=== PATIENT | male | born 1985 | race American Indian/Alaskan Native ===

== ENCOUNTER 2019-07-31 22:56 | Emergency (ER) | payer SELFPAY ==
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
[2019-07-31] MEDS ORDERED: Acetaminophen 325 MG Tab PO ONE (23:38)
[2019-07-31 23:57] LABS: ANION GAP 13.7; CHLORIDE,CL 106 mmol/L (101-111); SODIUM,NA 140 mmol/L (135-145)
== END 2019-08-01 00:23 | disposition left against medical advice (07) ==
LOC: DL.ED 22:56
DX: S01.01XA Laceration without foreign body of scalp, initial encounter (principal); S05.11XA Contusion of eyeball and orbital tissues, right eye, initial encounter; F17.210 Nicotine dependence, cigarettes, uncomplicated; Y04.8XXA Assault by other bodily force, initial encounter
CPT/HCPCS: 36415; 70450; 70486; 80053; 80307; 85025; 99284; A9270; 99283

== ENCOUNTER 2020-08-10 22:32 | Emergency (ER) | payer MEDICAID ==
--- NOTE | 2020-08-10 22:50 | EDM.PDOC ---
ED HPI GENERAL MEDICAL PROBLEM - General Chief Complaint: Upper Extremity Injury/Pain Stated Complaint: LEFT FORARMY POSSIBLY BROKEN PER PT Time Seen by Provider: 08/10/20 22:46 Source of Information: Reports: Patient, RN, RN Notes Reviewed History Limitations: Reports: No Limitations - History of Present Illness INITIAL COMMENTS - FREE TEXT/NARRATIVE: Patient presents to the ED via personal vehicle with complaints of left forearm pain. The patient reports he injured the extremity about 30 prior to arrival while working on cabinetry. His spring clamp broke and struck his arm posterior forearm forcefully; he is concerned about possible fracture. The patient denies history of injury to the extremity. 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 He denies loss of sensory function to the extremity. He has not taken any analgesic medications for this problem. Left Middle Anterior Arm Pain Score (Numeric/FACES): 7 - Related Data Allergies Allergy/AdvReac Type Severity Reaction Status Date / Time No Known Allergies Allergy Verified 07/31/19 23:09 Home Meds: Home Meds . [No Known Home Meds] 07/31/19 [History] Past Medical History - Past Health History Medical/Surgical History: Denies Medical/Surgical History Review of Systems - Review of Systems Review Of Systems: Comprehensive ROS is negative, except as noted in HPI. ED EXAM, GENERAL - Physical Exam Exam: See Below Exam Limited By: No Limitations General Appearance: Alert, No Apparent Distress Peripheral Pulses: 2+: Radial (L), Radial (R) Extremities: Normal Capillary Refill, Arm Pain (To left mid-posterior forearm ), Limited Range of Motion (Decreased boiler operator helper strength d/t pain), Other (Mild edema to left mid-posterior forearm). No: Joint Swelling, Increased Warmth, Mottled, Pallor, Redness Neurological: Alert, Oriented, CN II-XII Intact, Normal Cognition, Normal Gait, Normal Reflexes, No Motor/Sensory Deficits Psychiatric: Normal Affect, Normal Mood Skin Exam: Warm, Dry, Intact, Normal Color, No Rash, Other (Mild edema to left mid-posterior forearm; No bruising noted at this time). No: Ecchymosis, Erythema, Increased Warmth, Jaundice, Mottled, Pallor, Petechiae, Rash Course - Vital Signs Last Recorded V/S: Last Vital Signs Temp 97.7 F 08/10/20 22:44 Pulse 113 H 08/10/20 22:44 Resp 17 08/10/20 22:44 BP 147/74 H 08/10/20 22:44 Pulse Ox 100 08/10/20 22:44 - Radiology Interpretation Free Text/Narrative:: [facility] [place] [facility] Final Radiology Report Call: [phone] assistance Online chat: [email or web address] Name: CONSTANTIN LEIJA Age: 34Years M Date: 08/10/2020 SSN: -- : [id number] Study: CR FOREARM 2V LT Requesting Physician: Ruth Saha Images: 2 Addl Studies: Provided Clinical History: Pain to posterior aspect of forearm Contrast: Contrast Medium: Contrast Amount: Contrast Method: CONFIDENTIALITY STATEMENT This report is intended only for use by the referring physician, and only in accordance with law. If you received this in error, call [phone]. Page 1 of 1 PROCEDURE INFORMATION: Exam: XR Left Forearm Exam date and time: 08/10/2020 10:55 PM Age: 34 years old Clinical indication: Injury or trauma; Other: Woodworking clamp fell onto arm; Blunt trauma (contusions or hematomas); Arm, lower; Left; Additional info: Pain to posterior aspect of forearm TECHNIQUE: Imaging protocol: XR Left forearm. Views: 2 views. COMPARISON: No relevant prior studies available. FINDINGS: Bones/joints: Normal. Soft tissues: Normal. IMPRESSION: No acute findings. Thank you for allowing us to participate in the care of your patient. Dictated and Authenticated by: Jung Rosenberg MD 08/10/2020 11:13 PM Central Time ([place] & [place]) - Re-Assessments/Exams Free Text/Narrative Re-Assessment/Exam: 08/10/20 Xray of forearm unremarkable for acute processes; no fracture appreciated. Findings of examination and imaging discussed with patient. Discussed supportive cares. Patient verbalized understanding and agreement with the plan of care. Departure - Departure Time of Disposition: 23:15 Disposition: Home, Self-Care 01 Condition: Good Clinical Impression: Injury of left forearm Qualifiers: Encounter type: initial encounter Qualified Code(s): S59.912A - Unspecified injury of left forearm, initial encounter - Discharge Information *PRESCRIPTION DRUG MONITORING PROGRAM REVIEWED*: Not Applicable *COPY OF PRESCRIPTION DRUG MONITORING REPORT IN PATIENT DOUGLAS: Not Applicable Instructions: Pain Medicine Instructions, [id number] Forms: ED Department Discharge Additional Instructions: 1.) You may take ibuprofen (Advil/Motrin) 400mg every six hours, as pain and swelling persists. You may also take acetaminophen (Tylenol) 650mg every six hours, as pain persists. You may stagger these medications so you are taking a dose every three hours. 2.) You may apply ice to the affected area, as swelling and pain persists. 20 minutes at a time every hour. 3.) Continue to use the arm, using pain as your guide, as stiffness will result in more pain. Sepsis Event Note (ED) - Focused Exam Vital Signs: Vital Signs Temp Pulse Resp BP Pulse Ox 08/10/20 22:44 97.7 F 113 H 17 147/74 H 100
--- NOTE | 2020-08-10 23:13 | CR ---
PROCEDURE INFORMATION: Exam: XR Left Forearm Exam date and time: 08/10/2020 10:55 PM Age: 34 years old Clinical indication: Injury or trauma; Other: Woodworking clamp fell onto arm; Blunt trauma (contusions or hematomas); Arm, lower; Left; Additional info: Pain to posterior aspect of forearm TECHNIQUE: Imaging protocol: XR Left forearm. Views: 2 views. COMPARISON: No relevant prior studies available. FINDINGS: Bones/joints: Normal. Soft tissues: Normal. IMPRESSION: No acute findings.
== END 2020-08-10 23:24 | disposition home or self-care (01) ==
LOC: DL.ED 22:32
DX: S59.912A Unspecified injury of left forearm, initial encounter (principal); W22.8XXA Striking against or struck by other objects, initial encounter
CPT/HCPCS: 73090-LT; 99282; 99283-25

== ENCOUNTER 2020-08-13 14:57 | Emergency (ER) | payer MEDICAID ==
[2020-08-13] MEDS ORDERED: Proparacaine 0.5% Ophth Soln 15 ML Bottle EYERT ONE (15:15)
[2020-08-13] MEDS ORDERED: Tetracaine HCl/PF 0.5% 4 ML Bottle ONE (15:19)
[2020-08-13] MEDS ORDERED: Fluorescein 1 MG Ophth Strip EYERT ONE (15:27)
[2020-08-13] MEDS ORDERED: Gentamicin 0.3% Ophth Soln 5 ML Bottle ONE (15:52)
--- NOTE | 2020-08-13 16:18 | EDM.PDOC ---
Scribed by Airam Gonzalez 08/13/20 8022 for Vadim You MD ED HPI GENERAL MEDICAL PROBLEM - General Chief Complaint: ENT Problem Stated Complaint: SOMETHING IN RIGHT EYE Time Seen by Provider: 08/13/20 15:40 Source of Information: Reports: Patient, RN, RN Notes Reviewed History Limitations: Reports: No Limitations - History of Present Illness INITIAL COMMENTS - FREE TEXT/NARRATIVE: Patient presents to ED by POV stating complaints of having potentially sawdust in his right eye. Eye is watering and the lid is swollen and red. Onset: Today Duration: Getting Worse Location: Reports: Other (right eye) Quality: Reports: Ache Severity: Moderate Improves with: Reports: None Worsens with: Reports: None Associated Symptoms: Reports: No Other Symptoms Right Eye Pain Score (Numeric/FACES): 6 - Related Data Allergies Allergy/AdvReac Type Severity Reaction Status Date / Time No Known Allergies Allergy Verified 07/31/19 23:09 Home Meds: Home Meds . [No Known Home Meds] 07/31/19 [History] Past Medical History - Past Health History Medical/Surgical History: Denies Medical/Surgical History - Past Surgical History Musculoskeletal Surgical History: Reports: Other (See Below) Other Musculoskeletal Surgeries/Procedures:: left elbow surgery Social & Family History - Tobacco Use Tobacco Use Status *Q: Current Every Day Tobacco User Years of Tobacco use: 10 Packs/Tins Daily: 0.5 - Caffeine Use Caffeine Use: Reports: Soda - Recreational Drug Use Recreational Drug Use: No - Living Situation & Occupation Occupation: Employed ED ROS ENT - Review of Systems Review Of Systems: Comprehensive ROS is negative, except as noted in HPI. ED EXAM, ENT - Physical Exam Exam: See Below Exam Limited By: No Limitations General Appearance: Alert, WD/WN, No Apparent Distress Eye Exam: Right Eye: Conjunctival Injection, Corneal Abrasion, Left Eye: Normal Inspection, Bilateral Eye: EOMI, PERRL Ears: Normal External Exam Nose: Normal Inspection Head: Atraumatic, Normocephalic Respiratory/Chest: No Respiratory Distress Neurological: Alert, Oriented, CN II-XII Intact, No Motor/Sensory Deficits Psychiatric: Normal Mood Skin: Warm, Dry, Intact, Normal Color, No Rash Course - Vital Signs Last Recorded V/S: Last Vital Signs Temp 96.4 F L 08/13/20 15:05 Pulse 95 03/12/21 15:05 Resp 16 08/13/20 15:05 BP 138/92 H 08/13/20 15:05 Pulse Ox 95 08/13/20 15:05 - Orders/Labs/Meds Orders: Active Orders 24 hr Category Date Time Status Gentamicin [Garamycin 0.3% Ophth Soln] Med 08/13/20 21:00 Active 1 ml EYERT TID Medication Orders Gentamicin Sulfate (Gentamicin 0.3% Ophth Soln 5 Ml Bottle) 1 ml EYERT TID LARS Meds: Medications Generic Name Dose Route Start Last Admin Trade Name Freq PRN Reason Stop Dose Admin Gentamicin Sulfate 1 ml 08/13/20 21:00 Gentamicin 0.3% Ophth Soln 5 Ml Bottle EYERT TID LARS Discontinued Medications Generic Name Dose Route Start Last Admin Trade Name Freq PRN Reason Stop Dose Admin Fluorescein Sodium 1 mg 08/13/20 15:27 08/13/20 16:12 Fluorescein 1 Mg Ophth Strip EYERT 08/13/20 15:28 1 mg ONETIME ONE Administration Gentamicin Sulfate Confirm 08/13/20 15:52 08/13/20 16:12 Gentamicin 0.3% Ophth Soln 5 Ml Bottle Administered 08/13/20 15:53 1 ml Dose Administration 5 ml .ROUTE .STK-MED ONE Proparacaine HCl 1 ml 08/13/20 15:15 08/13/20 16:12 Proparacaine 0.5% Ophth Soln 15 Ml Bottle EYERT 08/13/20 15:16 Not Given ONETIME ONE Tetracaine HCl Confirm 08/13/20 15:19 08/13/20 16:13 Tetracaine Hcl/Pf 0.5% 4 Ml Bottle Administered 08/13/20 15:20 1 ml Dose Administration 4 ml .ROUTE .STK-MED ONE Departure - Departure Time of Disposition: 16:16 Disposition: Home, Self-Care 01 Condition: Good Clinical Impression: Right corneal abrasion Qualifiers: Encounter type: initial encounter Qualified Code(s): S05.01XA - Injury of conjunctiva and corneal abrasion without foreign body, right eye, initial encounter - Discharge Information *PRESCRIPTION DRUG MONITORING PROGRAM REVIEWED*: Not Applicable *COPY OF PRESCRIPTION DRUG MONITORING REPORT IN PATIENT DOUGLAS: Not Applicable Instructions: Eye Foreign Body, [id number], Corneal Abrasion, [id number] Forms: ED Department Discharge Additional Instructions: Gentamicin Ophthalmic Solution 0.3% x5 days. Proparacaine Eye Drops x24 hours only. Follow up in eye clinic if not completely better by Sunday morning (08/16/20). Sepsis Event Note (ED) - Evaluation Sepsis Screening Result: No Definite Risk - Focused Exam Vital Signs: Vital Signs Temp Pulse Resp BP Pulse Ox 08/13/20 15:05 96.4 F L 95 16 138/92 H 95 - My Orders Last 24 Hours: My Active Orders 08/13/20 21:00 Gentamicin [Garamycin 0.3% Ophth Soln] 1 ml EYERT TID - Assessment/Plan Last 24 Hours: My Active Orders 08/13/20 21:00 Gentamicin [Garamycin 0.3% Ophth Soln] 1 ml EYERT TID I have read and agree with the documentation that has been completed regarding this visit. By signing this record, I attest that the documentation was completed in my physical presence and is an accurate record of the encounter.
[2020-08-13] MEDS ORDERED: Gentamicin 0.3% Ophth Soln 5 ML Bottle EYERT SCH (21:00)
== END 2020-08-13 16:22 | disposition home or self-care (01) ==
LOC: DL.ED 14:57
DX: S05.01XA Injury of conjunctiva and corneal abrasion without foreign body, right eye, initial encounter (principal); Z72.0 Tobacco use; X58.XXXA Exposure to other specified factors, initial encounter
CPT/HCPCS: 99282; 99283; A9270-GY

== ENCOUNTER 2020-11-25 12:07 | Emergency (ER) | payer MEDICAID ==
[2020-11-25] MEDS ORDERED: Lidocaine 1% 30 ML SDV INJECT ONE (13:04)
[2020-11-25] MEDS ORDERED: Bupivacaine 0.5% 30 ML SDV INJECT ONE (13:04)
--- NOTE | 2020-11-25 13:14 | EDM.PDOC ---
ED HPI GENERAL MEDICAL PROBLEM - General Chief Complaint: Upper Extremity Injury/Pain Stated Complaint: LEFT INDEX FINGER OCTAIVO, SWOLLEN, HARD THREE DAYS Time Seen by Provider: 11/25/20 12:55 Source of Information: Reports: Patient History Limitations: Reports: No Limitations - History of Present Illness INITIAL COMMENTS - FREE TEXT/NARRATIVE: Patient comes emergency department today with concerns of an infection on his left second finger. This patient who chews on his fingernails on a daily basis was also IV methamphetamine user for many years noticed yesterday on the tip of his second finger and he had quite a bit of swelling and redness. It is gotten quite a bit worse and the pain is to the point where he cannot take it anymore. He has had no fever or chills. No recent trauma or injury to this finger. He is unsure of what his last tetanus shot was. Left Finger-Index Pain Score (Numeric/FACES): 6 - Related Data Allergies Allergy/AdvReac Type Severity Reaction Status Date / Time No Known Allergies Allergy Verified 07/31/19 23:09 Home Meds: Home Meds . [No Known Home Meds] 07/31/19 [History] Past Medical History - Past Health History Medical/Surgical History: Denies Medical/Surgical History - Past Surgical History Musculoskeletal Surgical History: Reports: Other (See Below) Other Musculoskeletal Surgeries/Procedures:: left elbow surgery Social & Family History - Tobacco Use Tobacco Use Status *Q: Current Every Day Tobacco User Years of Tobacco use: 23 Packs/Tins Daily: 1 - Caffeine Use Caffeine Use: Reports: Coffee, Energy Drinks, Soda, Tea - Recreational Drug Use Recreational Drug Use: Yes Recreational Drug Type: Reports: Methamphetamine Other Recreational Drug Type: last used five days ago, IV in right arm - Living Situation & Occupation Occupation: Employed Review of Systems - Review of Systems Review Of Systems: Comprehensive ROS is negative, except as noted in HPI. ED EXAM, GENERAL - Physical Exam Exam: See Below Exam Limited By: No Limitations General Appearance: Alert, WD/WN, No Apparent Distress Respiratory/Chest: No Respiratory Distress Cardiovascular: Normal Peripheral Pulses, Regular Rate, Rhythm Peripheral Pulses: 2+: Radial (L), Radial (R) Extremities: Other (Rest of the hand is noninfectious appearing. Actually appears that there is quite a bit of pus under the nail itself.). No: Normal Inspection (Exam left hand. On the very distal end of the second finger the left hand there is a pretty impressive paronychia with quite a bit of swelling at the base of the nailbed as well as the surrounding area. There is good CMS throughout the entire to the finger. He is able to flex and extend appropria) Neurological: Alert, Oriented, Normal Cognition, No Motor/Sensory Deficits Skin Exam: Warm, Dry, Intact, Normal Color ED TRAUMA EXTREMITY PROCEDURES - I&D Site: left index finger Skin Prep: Providone-Iodine (Betadine) Local Anesthesia: Lidocaine: 1% Plain Local Anesthesia - Bupivicaine (Marcaine): 0.5% Plain Local Anesthetic Volume: 4cc, Other (A digital block at the base of the index finger medially and laterally.) Area Incised With: 11 Blade (A small puncture wound was made at the base of the cuticle) Drainage: Purulent, Moderate Amount Probed to Break Up Loculations: No Complications: No Progress/Comments: The finger then was soaked in sterile water as well as chlorhexidine. Course - Vital Signs Last Recorded V/S: Last Vital Signs Temp 97.2 F 11/25/20 12:27 Pulse 111 H 11/25/20 12:27 Resp 12 11/25/20 12:27 BP 137/81 11/25/20 12:27 Pulse Ox 98 11/25/20 12:27 - Orders/Labs/Meds Meds: Medications Discontinued Medications Generic Name Dose Route Start Last Admin Trade Name Michaelq PRN Reason Stop Dose Admin Bupivacaine HCl 30 ml 11/25/20 13:04 11/25/20 13:14 Bupivacaine 0.5% 30 Ml Sdv INJECT 11/25/20 13:05 10 ml ONETIME ONE Administration Diphtheria/Tetanus/Acell Pertussis 0.5 ml 11/25/20 13:35 11/25/20 13:41 Diphtheria,Pertussis(Acell),Tetanus Vaccine 0.5 Ml Syringe IM 11/25/20 13:36 0.5 ml .ONCE ONE Administration Lidocaine HCl 30 ml 11/25/20 13:04 11/25/20 13:14 Lidocaine 1% 30 Ml Sdv INJECT 11/25/20 13:05 10 ml ONETIME ONE Administration Trimethoprim/Sulfamethoxazole 1 tab 11/25/20 13:33 11/25/20 13:41 Sulfamethoxazole/Trimethoprim 800-160 Mg Tab PO 11/25/20 13:34 1 tab ONETIME ONE Administration - Re-Assessments/Exams Free Text/Narrative Re-Assessment/Exam: 11/25/20 15:15 His tetanus immunization was up dated today. Bactrim 1 tablet p.o. He is uninterested in assistance with his chronic methamphetamine IV usage. Discharge directions as below are explained to the patient is comfortable with this plan and his questions were answered. Departure - Departure Time of Disposition: 13:36 Disposition: Home, Self-Care 01 Clinical Impression: Paronychia of finger of left hand - Discharge Information Instructions: Paronychia, [id number] Forms: ED Department Discharge Additional Instructions: Your tetanus was updated today. You are good for 10 years. Tylenol and or Ibuprofen for pain. Bactrim DS, 1 tablet twice daily for the next 7 days. Finish no matter what the entire course. #14. Soap your finger 4 times a day in warm/hot water Awa dish soap and Epsom salts the next 4 days or until healed. Allow the finger incision to drain. Recheck in the ED if new or worsening symptoms. Follow up in the clinic if concerns. Sepsis Event Note (ED) - Evaluation Sepsis Screening Result: No Definite Risk - Focused Exam Vital Signs: Vital Signs Temp Pulse Resp BP Pulse Ox 11/25/20 12:27 97.2 F 111 H 12 137/81 98
[2020-11-25] MEDS ORDERED: Sulfamethoxazole/Trimethoprim 800-160 MG Tab PO ONE (13:33)
[2020-11-25] MEDS ORDERED: Diphtheria,Pertussis(Acell),Tetanus Vaccine 0.5 ML Syringe IM ONE (13:35)
== END 2020-11-25 13:45 | disposition home or self-care (01) ==
LOC: DL.ED 12:07
DX: L03.012 Cellulitis of left finger (principal); L02.512 Cutaneous abscess of left hand; Z23 Encounter for immunization
CPT/HCPCS: 10060; 90471; 90715; 99283; A9270; J3490

== ENCOUNTER 2021-02-03 19:53 | Emergency (ER) | payer MEDICAID ==
[2021-02-03] MEDS ORDERED: Clindamycin HCl 150 MG Cap PO ONE ×2 (19:54→21:52)
[2021-02-03] MEDS ORDERED: Acetaminophen/oxyCODONE 325-5 MG Tab PO ONE ×2 (19:54→21:52)
[2021-02-03] MEDS ORDERED: Ketorolac 30 MG/ML SDV IM ONE (20:25)
[2021-02-03] MEDS ORDERED: Ketorolac 30 MG/ML SDV IVPUSH ONE (20:32)
[2021-02-03] MEDS ORDERED: Iopamidol 612 MG/ML 100 ML Bottle IVPUSH ONE (20:33)
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
[2021-02-03] MEDS ORDERED: Acetaminophen/oxyCODONE 325-5 MG Tab ONE (22:08)
[2021-02-03] MEDS ORDERED: Clindamycin HCl 150 MG Cap ONE (22:08)
== END 2021-02-03 22:14 | disposition home or self-care (01) ==
LOC: DL.ED 19:53
DX: S02.652A Fracture of angle of left mandible, initial encounter for closed fracture (principal); K04.7 Periapical abscess without sinus; K02.9 Dental caries, unspecified; Z72.0 Tobacco use; Y04.2XXA Assault by strike against or bumped into by another person, initial encounter
CPT/HCPCS: 70487; 96374; 99284; A9270; J1885; Q9967

== ENCOUNTER 2022-08-28 16:45 | Emergency (ER) | payer MEDICAID ==
[2022-08-28] MEDS ORDERED: Lidocaine 1% 5 ML VIAL INJECT ONE (16:50)
[2022-08-28] MEDS ORDERED: Ketorolac 30 MG/ML SDV IM ONE (17:09)
== END 2022-08-28 18:04 | disposition home or self-care (01) ==
LOC: DL.ED 16:45
DX: S01.112A Laceration without foreign body of left eyelid and periocular area, initial encounter (principal); W22.8XXA Striking against or struck by other objects, initial encounter
CPT/HCPCS: 12011; 70450; 96372; 99283; J1885; 99282; J3490

== ENCOUNTER 2022-11-17 19:29 | Emergency (ER) | payer MEDICAID ==
[2022-11-17] MEDS ORDERED: HYDROmorphone 1 MG/ML Syringe IVPUSH ONE ×2 (19:56→21:34)
[2022-11-17] MEDS ORDERED: Ondansetron 4 MG in Sodium Chloride 0.9% 50 ML IV ONE (19:57)
[2022-11-17] MEDS ORDERED: ceFAZolin 2 GM Vial IVPUSH ONE (20:29)
[2022-11-17] MEDS ORDERED: Ondansetron 4 MG/2 ML SDV IVPUSH ONE (20:44)
[2022-11-17] MEDS ORDERED: Lidocaine 1% 5 ML VIAL INJECT ONE (21:58)
[2022-11-17] MEDS ORDERED: Take Home: Acetaminophen/oxyCODONE 325-5 MG, 5 Tab Pack PO ONE (22:42)
== END 2022-11-17 23:02 | disposition home or self-care (01) ==
LOC: DL.ED 19:29
DX: S61.412A Laceration without foreign body of left hand, initial encounter (principal); F17.210 Nicotine dependence, cigarettes, uncomplicated; W31.2XXA Contact with powered woodworking and forming machines, initial encounter; Y92.009 Unspecified place in unspecified non-institutional (private) residence as the place of occurrence of the external cause
CPT/HCPCS: 12002; 12032; 96374; 96375; 96376; 99282; 99283; J0690; J1170; J2405; A9270-GY; J3490

== ENCOUNTER 2022-12-19 17:27 | Emergency (ER) | payer MEDICAID ==
[2022-12-19] MEDS ORDERED: Ketorolac 30 MG/ML SDV IVPUSH ONE (17:53)
[2022-12-19] MEDS ORDERED: Sodium Chloride 0.9% 10 ML Syringe FLUSH PRN (17:53)
[2022-12-19 18:12] LABS: BASOPHILS PERCENT AUTO 0.2 % (0.0-1.0); EOSINOPHILS PERCENT AUTO 0.7 % (1.0-3.0); HEMATOCRIT 41.2 % (40.0-54.0); HEMOGLOBIN 14.5 g/dL (14.0-18.0); LYMPHOCYTES PERCENT AUTO 15.7 % (20.5-50.1); MEAN CORPUSCULAR HEMOGLOBIN 31.2 pg (27.0-34.0); MEAN CORPUSCULAR HGB CONC 35.2 g/dL (33.0-35.0); MEAN CORPUSCULAR VOLUME 88.6 fL (80-100); MONOCYTES PERCENT AUTO 9.2 % (2-8); NEUTROPHILS PERCENT AUTO 74.2 % (42.2-75.2); PLATELET COUNT,PLT 376 10^3/uL (150-450); RED BLOOD CELL COUNT 4.65 10^6/uL (4.6-6.2); WHITE BLOOD CELL COUNT,WBC 12.8 10^3/uL (5.0-10.0)
[2022-12-19 18:50] LABS: A/G RATIO 0.8; ALBUMIN 3.5 g/dL (3.4-5.0); ANION GAP 13.9 mEq/L (7-13); BILIRUBIN TOTAL 0.5 mg/dL (0.2-1.0); BUN/CREATININE RATIO 15.1 (No establ ref range); C-REACTIVE PROTEIN 2.3 mg/dL (0.0-0.9); CALCIUM 8.9 mg/dL (8.5-10.1); CREATININE 0.93 mg/dL (0.70-1.30); EST CRCL DRUG DOSING (CG) 97.68 mL/min; POTASSIUM,K 3.9 mmol/L (3.5-5.1); PROTEIN TOTAL,TP 7.8 g/dL (6.4-8.2)
[2022-12-19 18:53] LABS: LACTIC ACID 0.4 mmol/L (0.4-2.0)
== END 2022-12-19 19:34 | disposition home or self-care (01) ==
LOC: DL.ED 17:27
DX: N45.1 Epididymitis (principal); F17.210 Nicotine dependence, cigarettes, uncomplicated
CPT/HCPCS: 36415; 76870; 80053; 83605; 85025; 86140; 96374; 99284; J1885; J3490

== ENCOUNTER 2023-12-01 19:41 | Emergency (ER) | payer MEDICAID, OTHER ==
[2023-12-01] MEDS: Ketorolac 30 MG/ML SDV IM ONE (20:45)
== END 2023-12-01 21:03 | disposition home or self-care (01) ==
LOC: DL.ED 19:41
DX: K05.11 Chronic gingivitis, non-plaque induced (principal)
CPT/HCPCS: 96372; 99283; J1885; 99282

== ENCOUNTER 2023-12-02 16:57 | Emergency (ER) | payer MEDICAID ==
[2023-12-02] MEDS: traMADol 50 MG Tab PO ONE (17:15)
[2023-12-02] MEDS: Amoxicillin/Clavulanate K 875-125 MG Tab PO ONE (17:18)
[2023-12-02] MEDS: Take Home: Lidocaine 2% Viscous Solution 15 ML UD, 2 Cup Pack PO ONE (17:18)
[2023-12-02] MEDS: Take Home: Amoxicillin/Clavulanate K 875-125 MG Tab, 6 Tab Pack PO ONE (17:18)
== END 2023-12-02 17:30 | disposition home or self-care (01) ==
LOC: DL.ED 16:57
DX: K02.9 Dental caries, unspecified (principal)
CPT/HCPCS: 99282; 99283; A9270

== ENCOUNTER 2024-05-26 10:46 | Emergency (ER) | payer SELFPAY ==
[2024-05-26 11:35] LABS: AMPHETAMINES,URINE NEGATIVE (NEGATIVE); BARBITURATES,URINE NEGATIVE (NEGATIVE); BENZODIAZEPINE,URINE NEGATIVE (NEGATIVE); MDMA (ECSTASY), URINE NEGATIVE (NEGATIVE); METHADONE,URINE NEGATIVE (NEGATIVE); METHAMPHETAMINES,URINE NEGATIVE (NEGATIVE); OPIATES,URINE NEGATIVE (NEGATIVE); OXYCODONE,URINE NEGATIVE (NEGATIVE); PHENCYCLIDINE,URINE NEGATIVE (NEGATIVE); TCA,URINE NEGATIVE (NEGATIVE)
== END 2024-05-26 12:22 | disposition home or self-care (01) ==
LOC: DL.ED 10:46
DX: S06.0X0A Concussion without loss of consciousness, initial encounter (principal); Z79.899 Other long term (current) drug therapy; W20.8XXA Other cause of strike by thrown, projected or falling object, initial encounter; Y99.0 Civilian activity done for income or pay
CPT/HCPCS: 70450; 80305-QW; 99284